=== PATIENT | female | born 1940 | race Caucasian/White ===

== ENCOUNTER 2017-07-30 18:08 | Inpatient (IN) | payer MEDICARE ==
[~2017-07-30] VITALS: Ht 152.4 cm; Wt 77.1 kg
[2017-07-30 19:50] LABS: PLATELET COUNT 208 x10^3mcL (130-400); RED CELL DISTRIBUTION WIDTH 14.2 % (11.5-14.5)
[2017-07-30 19:53] LABS: CALCIUM 8.9 mg/dL (8.5-10.1); CARBON DIOXIDE 27.4 mmol/L (21-32); CHLORIDE SERUM 103 mmol/L (98-107); CREATININE SERUM 0.7 mg/dL (0.6-1.0); GLUCOSE SERUM 170 mg/dL (74-106); POTASSIUM SERUM 4.4 mmol/L (3.5-5.1); SODIUM SERUM 139 mmol/L (136-145)
[2017-07-30 19:57] LABS: ALKALINE PHOSPHATASE 457 U/L (46-116); ALT/SGPT 878 U/L (14-59); AMYLASE 47 U/L (25-115); AST/SGOT 545 U/L (15-37); LIPASE 238 IU/L (73-393); TOTAL PROTEIN, SERUM 7.6 g/dL (6.4-8.2)
[2017-07-30 20:44] LABS: MONOCYTE 3 % (0-7); SEGMENTED NEUTROPHILS 82 % (37-75)
[2017-07-30 20:45] LABS: BAND NEUTROPHIL 0 % (0-10); BASOPHIL 0 % (0-2)
[2017-07-30 20:47] LABS: rbc morphology (normal/abnorm) ABNORMAL (NORMAL)
[2017-07-30 20:48] LABS: PLATELET MORPHOLOGY LARGE PLATELET SEEN
[2017-07-30] MEDS ORDERED: CIPRO500 MG PO (21:45)
[2017-07-30] MEDS ORDERED: PRO60 PO (21:45)
[2017-07-30] MEDS ORDERED: DORZOLAMIDE HCL10 ML OP (21:46)
[2017-07-31 00:19] VITALS: BP 138/74
[2017-07-31 04:35] LABS: MAGNESIUM 2.1 mg/dL (1.8-2.4); PHOSPHOROUS 2.7 mg/dL (2.5-4.9)
[2017-07-31 04:38] LABS: CHOLESTEROL/HDL RATIO 19.3
[2017-07-31 05:09] VITALS: BP 123/60
[2017-07-31 06:15] LABS: PLATELET COUNT 230 x10^3mcL (130-400); RED CELL DISTRIBUTION WIDTH 13.9 % (11.5-14.5)
[2017-07-31 06:41] LABS: T3 TOTAL 0.9 ng/mL
[2017-07-31 06:43] LABS: ALKALINE PHOSPHATASE 462 U/L (46-116); ALT/SGPT 850 U/L (14-59); AST/SGOT 491 U/L (15-37); BILIRUBIN TOTAL 8.6 mg/dL (0.20-1.00); CALCIUM 8.6 mg/dL (8.5-10.1); CARBON DIOXIDE 25.6 mmol/L (21-32); CHLORIDE SERUM 103 mmol/L (98-107); CREATININE SERUM 0.7 mg/dL (0.6-1.0); GLUCOSE SERUM 124 mg/dL (74-106); SODIUM SERUM 140 mmol/L (136-145); TOTAL PROTEIN, SERUM 7.2 g/dL (6.4-8.2)
[2017-07-31 06:55] LABS: FREE T4 1.51 ng/dL (0.76-1.46); FREE THYROXINE INDEX 4.2 ug/dL (1.4-4.5); T4(THYROXINE) 11.8 ug/dL (4.7-13.3)
[2017-07-31 07:02] LABS: microscopic required? NO
[2017-07-31 07:16] LABS: POTASSIUM SERUM 2.9 mmol/L (3.5-5.1)
[2017-07-31 08:10] LABS: BASOPHIL % 0 % (0-2)
[2017-07-31 08:15] LABS: UA SPECIFIC GRAVITY <=1.005 (1.005-1.035); urine erythrocyte NEGATIVE (NEGATIVE)
[2017-07-31 08:25] LABS: AMPHETAMINE QUAL UR NONE DETECTED (NEG <=1000)
[2017-07-31 10:33] VITALS: BP 144/69
[2017-07-31 14:56] VITALS: BP 156/79
[2017-07-31 17:26] VITALS: BP 151/64
[2017-07-31 21:44] VITALS: BP 137/59
[2017-08-01 06:58] VITALS: BP 133/57
[2017-08-01 06:58] LABS: BASOPHIL % 0.3 % (0-2); PLATELET COUNT 219 x10^3mcL (130-400)
[2017-08-01 06:59] LABS: RED CELL DISTRIBUTION WIDTH 14.7 % (11.5-14.5)
[2017-08-01 07:09] LABS: CALCIUM 8.4 mg/dL (8.5-10.1); CARBON DIOXIDE 25.6 mmol/L (21-32); CHLORIDE SERUM 107 mmol/L (98-107); CREATININE SERUM 0.7 mg/dL (0.6-1.0); GLUCOSE SERUM 102 mg/dL (74-106); MAGNESIUM 1.9 mg/dL (1.8-2.4); PHOSPHOROUS 2.5 mg/dL (2.5-4.9); POTASSIUM SERUM 3.5 mmol/L (3.5-5.1); SODIUM SERUM 143 mmol/L (136-145)
[2017-08-01 09:15] VITALS: BP 146/64
[2017-08-01 13:05] LABS: BILIRUBIN DIRECT 2.12 mg/dL (0.0-0.2); BILIRUBIN TOTAL 3.52 mg/dL (0.20-1.00); TOTAL PROTEIN, SERUM 6.9 g/dL (6.4-8.2)
[2017-08-01 13:17] LABS: ALBUMIN 2.8 g/dL (3.4-5.0)
[2017-08-01 14:40] VITALS: BP 126/55
[2017-08-01 18:12] VITALS: BP 131/52
[2017-08-01 21:58] VITALS: BP 112/55
[2017-08-02 05:21] VITALS: BP 134/55
[2017-08-02 06:26] LABS: CALCIUM 8.3 mg/dL (8.5-10.1); CARBON DIOXIDE 28.5 mmol/L (21-32); CHLORIDE SERUM 105 mmol/L (98-107); CREATININE SERUM 0.8 mg/dL (0.6-1.0); GLUCOSE SERUM 136 mg/dL (74-106); MAGNESIUM 1.8 mg/dL (1.8-2.4); PHOSPHOROUS 2.5 mg/dL (2.5-4.9); POTASSIUM SERUM 3.3 mmol/L (3.5-5.1); SODIUM SERUM 143 mmol/L (136-145)
[2017-08-02 06:28] LABS: PLATELET COUNT 179 x10^3mcL (130-400)
[2017-08-02 06:46] LABS: BASOPHIL % 0 % (0-2); RED CELL DISTRIBUTION WIDTH 14.8 % (11.5-14.5)
[2017-08-02 09:13] LABS: BILIRUBIN DIRECT 1.58 mg/dL (0.0-0.2); BILIRUBIN TOTAL 2.4 mg/dL (0.20-1.00); TOTAL PROTEIN, SERUM 6.4 g/dL (6.4-8.2)
[2017-08-02 09:19] LABS: ALBUMIN 2.5 g/dL (3.4-5.0)
[2017-08-02 09:22] VITALS: BP 131/49
[2017-08-02 13:44] VITALS: BP 121/51
[2017-08-02 18:30] VITALS: BP 137/60
[2017-08-02 20:51] VITALS: BP 119/60
[2017-08-03 05:13] VITALS: BP 135/64
[2017-08-03 06:37] LABS: BASOPHIL % 0.2 % (0-2); PLATELET COUNT 168 x10^3mcL (130-400)
[2017-08-03 06:39] LABS: RED CELL DISTRIBUTION WIDTH 14.6 % (11.5-14.5)
[2017-08-03 06:55] LABS: CALCIUM 8.7 mg/dL (8.5-10.1); CARBON DIOXIDE 29.8 mmol/L (21-32); CHLORIDE SERUM 105 mmol/L (98-107); CREATININE SERUM 0.8 mg/dL (0.6-1.0); GLUCOSE SERUM 97 mg/dL (74-106); MAGNESIUM 1.9 mg/dL (1.8-2.4); PHOSPHOROUS 2.4 mg/dL (2.5-4.9); POTASSIUM SERUM 3.3 mmol/L (3.5-5.1); SODIUM SERUM 143 mmol/L (136-145)
[2017-08-03] MEDS ORDERED: NORCO1 TA2 PO (09:34)
[2017-08-03 09:40] LABS: ALBUMIN 2.9 g/dL (3.4-5.0); BILIRUBIN DIRECT 1.41 mg/dL (0.0-0.2); BILIRUBIN TOTAL 2.45 mg/dL (0.20-1.00); TOTAL PROTEIN, SERUM 7.2 g/dL (6.4-8.2)
[2017-08-03] MEDS ORDERED: OMEPRAZOLE40 M1 PO (09:40)
[2017-08-03] MEDS ORDERED: IBUPROFEN400 MG PO (09:42)
[2017-08-03 09:53] VITALS: BP 138/56
[2017-08-03 13:18] VITALS: BP 138/56
== END 2017-08-03 14:34 | disposition home or self-care (01) | DRG 418 ==
LOC: ED 18:08 → DU 23:04
PROVIDERS: Emergency Medicine Emergency Medical Services; Internal Medicine Gastroenterology; Surgery; ADMIT Family Medicine Sports Medicine
PROC: 0FC98ZZ Extirpation of Matter from Common Bile Duct, Via Natural or Artificial Opening Endoscopic (ICD-10-PCS; 2017-07-31 10:00)
PROC: 0DB68ZX Excision of Stomach, Via Natural or Artificial Opening Endoscopic, Diagnostic (ICD-10-PCS; 2017-07-31 10:00)
PROC: 0FT44ZZ Resection of Gallbladder, Percutaneous Endoscopic Approach (ICD-10-PCS; principal; 2017-08-01 09:00)
DX: K80.61 Calculus of gallbladder and bile duct with cholecystitis, unspecified, with obstruction (principal); E44.0 Moderate protein-calorie malnutrition; N13.30 Unspecified hydronephrosis; K21.9 Gastro-esophageal reflux disease without esophagitis; K29.80 Duodenitis without bleeding; K44.9 Diaphragmatic hernia without obstruction or gangrene; I10 Essential (primary) hypertension; H40.9 Unspecified glaucoma; E66.9 Obesity, unspecified; Z68.32 Body mass index [BMI] 32.0-32.9, adult
CPT/HCPCS: 43235; 43262; 82962; 83880; 84439; 97110-GP; 97116-GP; 97530-GP; C1769; J0295; J1610; J1644; J2405; J2704; J2710; J3480; J3490; J7030; J7040; J7120; Q0092; Q9967

== ENCOUNTER 2018-04-08 08:34 | Inpatient (IN) | payer BC ==
[~2018-04-08] VITALS: Ht 152.4 cm; Wt 70.9 kg
[~2018-04-08 08:34] MED LIST: CIPRO500 MG PO; DORZOLAMIDE HCL10 ML OP; IBUPROFEN400 MG PO; NORCO1 TA2 PO; OMEPRAZOLE40 M1 PO; PRO60 PO
[2018-04-08 08:46] VITALS: Ht 152.4 cm; Wt 70.9 kg
[2018-04-08 10:20] LABS: CALCIUM 8.5 mg/dL (8.5-10.1); CARBON DIOXIDE 23.8 mmol/L (21-32); CHLORIDE SERUM 107 mmol/L (98-107); CREATININE SERUM 0.8 mg/dL (0.6-1.0); GLUCOSE SERUM 119 mg/dL (74-106); POTASSIUM SERUM 3.2 mmol/L (3.5-5.1); SODIUM SERUM 142 mmol/L (136-145)
[2018-04-08 10:34] LABS: ALBUMIN 3.4 g/dL (3.4-5.0); ALKALINE PHOSPHATASE 88 U/L (46-116); ALT/SGPT 16 U/L (14-59); AMYLASE 56 U/L (25-115); AST/SGOT 16 U/L (15-37); BILIRUBIN TOTAL 0.8 mg/dL (0.20-1.00); LIPASE 92 IU/L (73-393); TOTAL PROTEIN, SERUM 7.3 g/dL (6.4-8.2)
[2018-04-08 10:45] LABS: microscopic required? YES; urine erythrocyte TRACE (NEGATIVE)
[2018-04-08 10:47] LABS: BASOPHIL % 0.3 % (0-2); PLATELET COUNT 178 x10^3mcL (130-400); RED CELL DISTRIBUTION WIDTH 12.7 % (11.5-14.5)
[2018-04-08] MEDS ORDERED: ASPIR 8181 MG PO (11:36)
[2018-04-08] MEDS ORDERED: ZESTRIL5 MG PO (11:37)
[2018-04-08] MEDS ORDERED: PRAVACHOL20 MG PO (11:37)
[2018-04-08 13:20] VITALS: BP 174/88
[2018-04-08 13:52] LABS: T3 TOTAL 1.25 ng/mL
[2018-04-08 13:54] LABS: AMPHETAMINE QUAL UR NONE DETECTED
[2018-04-08 14:44] LABS: MAGNESIUM 1.8 mg/dL (1.8-2.4); PHOSPHOROUS 2.9 mg/dL (2.5-4.9)
[2018-04-08 14:50] LABS: CHOLESTEROL/HDL RATIO 3.1
[2018-04-08 14:55] LABS: FREE T4 1.23 ng/dL (0.76-1.46); FREE THYROXINE INDEX 3.6 ug/dL (1.4-4.5); T4(THYROXINE) 10.7 ug/dL (4.7-13.3)
[2018-04-08 18:36] VITALS: BP 130/67
[2018-04-08 20:40] VITALS: BP 135/66
[2018-04-09 04:58] VITALS: BP 129/66
[2018-04-09 06:45] LABS: BASOPHIL % 0.1 % (0-2); PLATELET COUNT 174 x10^3mcL (130-400); RED CELL DISTRIBUTION WIDTH 13.3 % (11.5-14.5)
[2018-04-09 06:55] LABS: CALCIUM 8.3 mg/dL (8.5-10.1); CHLORIDE SERUM 109 mmol/L (98-107); CREATININE SERUM 0.7 mg/dL (0.6-1.0); GLUCOSE SERUM 98 mg/dL (74-106); MAGNESIUM 1.8 mg/dL (1.8-2.4); PHOSPHOROUS 2.8 mg/dL (2.5-4.9); POTASSIUM SERUM 3.8 mmol/L (3.5-5.1); SODIUM SERUM 143 mmol/L (136-145)
[2018-04-09 09:00] VITALS: BP 135/64
[2018-04-09 12:31] VITALS: BP 153/69
[2018-04-09 17:29] VITALS: BP 110/49
[2018-04-09 22:01] VITALS: BP 120/59
[2018-04-10 06:01] VITALS: BP 131/54
[2018-04-10 06:43] LABS: PLATELET COUNT 183 x10^3mcL (130-400); RED CELL DISTRIBUTION WIDTH 13.5 % (11.5-14.5)
[2018-04-10 06:45] LABS: BASOPHIL % 0 % (0-2)
[2018-04-10 07:38] LABS: CARBON DIOXIDE 22.5 mmol/L (21-32); CHLORIDE SERUM 112 mmol/L (98-107); CREATININE SERUM 1.1 mg/dL (0.6-1.0); GLUCOSE SERUM 119 mg/dL (74-106); PHOSPHOROUS 3.5 mg/dL (2.5-4.9); SODIUM SERUM 149 mmol/L (136-145)
[2018-04-10 08:48] VITALS: BP 139/46
[2018-04-10 12:56] VITALS: BP 126/58; BP 89/52
[2018-04-10 13:09] VITALS: BP 126/58
== END 2018-04-10 14:08 | disposition home or self-care (01) | DRG 391 ==
LOC: ED 08:34 → DU 11:26
PROVIDERS: Emergency Medicine; Family Medicine; Internal Medicine Gastroenterology; Student in an Organized Health Care Education/Training Program
PROC: 0DBF8ZX Excision of Right Large Intestine, Via Natural or Artificial Opening Endoscopic, Diagnostic (ICD-10-PCS; principal; 2018-04-10 13:30)
DX: K52.9 Noninfective gastroenteritis and colitis, unspecified (principal); N17.0 Acute kidney failure with tubular necrosis; E87.0 Hyperosmolality and hypernatremia; E87.6 Hypokalemia; K57.30 Diverticulosis of large intestine without perforation or abscess without bleeding; R73.03 Prediabetes; R31.9 Hematuria, unspecified; H40.9 Unspecified glaucoma; E78.5 Hyperlipidemia, unspecified; M47.896 Other spondylosis, lumbar region; E66.3 Overweight; Z79.82 Long term (current) use of aspirin; Z68.30 Body mass index [BMI] 30.0-30.9, adult
CPT/HCPCS: 45378; 83880; 84439; 87046; 87046-59; J1200; J1610; J1956; J2250; J2310; J2405; J3010; J3480; J3490; J7030; Q0092; Q9967